=== PATIENT | male | born 1975 | race Caucasian/White ===

== ENCOUNTER 2016-10-22 00:27 | Emergency (ER) ==
[2016-10-22] MEDS ORDERED: SODIUM CHLORIDE 1,000 ML IV STA (00:30)
[2016-10-22 00:48] LABS: BASOPHILS # (AUTO) 0.1 K/uL (0-0.2); BASOPHILS % (AUTO) 0.3 % (0.0-3.0); EOSINOPHILS % (AUTO) 0.3 % (0.0-7.0); HEMATOCRIT 43.8 % (42.0-52.0); HEMOGLOBIN 15.7 g/dl (14.0-18.0); IMMATURE GRANULOCYTE % (AUTO) 0.3 % (0.0-5.0); LYMPHOCYTES # (AUTO) 4.7 K/uL (0.60-3.4); LYMPHOCYTES % (AUTO) 33.2 (10.0-50.0); MEAN CORPUSCULAR HEMOGLOBIN 32.6 pg (27.0-31.0); MEAN CORPUSCULAR HGB CONC 35.8 (31.8-35.4); MEAN CORPUSCULAR VOLUME 91.1 fl (80.0-94.0); MONOCYTES # (AUTO) 0.9 K/uL (0.4-2.0); MONOCYTES % (AUTO) 6.3 (0-10); NEUTROPHILS # (AUTO) 8.5 K/ul (2.0-6.9); NEUTROPHILS % (AUTO) 59.6; PLATELET COUNT 276 10^3/uL (140-440); RED BLOOD COUNT 4.81 10^6/ul (4.70-6.10); WHITE BLOOD COUNT 14.29 K/ul (4.2-10.2)
[2016-10-22 00:59] VITALS: BP 119/64; TEMP 98; BMI 22.1
[2016-10-22 00:59] LABS: ABG PH 7.358 (7.35-7.45)
[2016-10-22 01:00] LABS: ABG BASE EXCESS -7 (-2.0-2.0); ABG HCO3 18.5 (22.0-26.0); ABG TCO2 20 (22.0-28.0)
[2016-10-22] MEDS ORDERED: ATIVAN ONE (01:15)
[2016-10-22 01:18] LABS: ACETAMINOPHEN < 3 ug/ml (10-30); SALICYLATE < 5.0 mg/dL (2.8-20.0)
[2016-10-22 01:28] LABS: ALBUMIN 4.2 g/dL (3.4-5.0); ALBUMIN/GLOBULIN RATIO 1.08; ALKALINE PHOSPHATASE 86 U/L (50-136); ANION GAP 18.8; BILIRUBIN,TOTAL 0.29 mg/dL (0.00-1.20); CALCIUM 9.4 mg/dL (8.2-10.2); CARBON DIOXIDE 18 mmol/L (21-32); CHLORIDE 111 mmol/L (98-107); GLUCOSE 94 mg/dL (70-100); POTASSIUM 3.8 mmol/L (3.5-5.1); SODIUM 144 mmol/L (136-145); TOTAL PROTEIN 8.1 g/dL (6.4-8.2)
[2016-10-22 01:29] LABS: ALANINE AMINOTRANSFERASE 19 U/L (12-78); ASPARTATE AMINO TRANSFERASE 26 U/L (15-37); BLOOD UREA NITROGEN 14 mg/dL (7-18); BUN/CREATININE RATIO 13.46; CREATINE KINASE 408 U/L; CREATINE KINASE MB 1.9 ng/ml (0.0-3.6); CREATININE 1.04 mg/dL (0.60-1.10)
[2016-10-22 01:48] LABS: BILIRUBIN,URINE Negative (NEGATIVE); KETONES,URINE Negative (NEGATIVE); LEUKOCYTE ESTERASE ,URINE Negative (NEGATIVE); NITRITE,URINE Negative (NEGATIVE); PH,URINE 5.5 (5-9); PROTEIN,URINE Negative (NEGATIVE); URINE, BLOOD 1+ (NEGATIVE)
[2016-10-22 01:58] LABS: ADD URINE MICROSCOPIC YES
[2016-10-22 01:59] LABS: BACTERIA,URINE TRACE (NOT PRESENT); COCAIN SCREEN,URINE NEGATIVE (NEGATIVE)
[2016-10-22] MEDS ORDERED: URO-JET MUCOUSMEMB STA (02:12)
--- NOTE | 2016-10-22 02:56 | CT ---
EXAM: CT head without contrast. HISTORY: Mental status change. PROCEDURE: Contiguous axial CT images of the head without contrast with coronal and sagittal reform ats. FINDINGS: The ventricles and basal cisterns are normal in size and configuration. No evidence of ma ss or midline shift. No intracranial hemorrhage or evidence of large vessel infarct. No extra-axia l fluid collection. The paranasal sinuses and mastoid air cells are well-aerated. Impression: Negative CT of the head.
[2016-10-22] MEDS ORDERED: ATIVAN IVP PRN (03:08)
--- NOTE | 2016-10-22 06:29 | ED.PDOC ---
General ED Provider: Dr. DEBBIE MONTE-ER Chief Complaint: Alcohol Intoxication Stated Complaint: brought in by medics for intoxication, had open containers in vehicle admitted to drinking Time Seen by Physician: 00:50 Mode of Arrival: Ambulance Information Source: EMT Exam Limitations: Intoxication Nursing and Triage Documentation Reviewed and Agree: Yes Neurological Complaint Exam - Altered Mental Status Complaint/Exam Current Mental Status: Confusion Last Known Well: uknown Onset: Sudden Symptoms Are: Still present Timing: Constant Episodes Lasting: Hours Initial Severity: Mild Current Severity: Moderate Eye Deviation Present: No Character: Reports: Confusion, Agitation, Lethargy. Denies: Responsiveness Aggravating: Reports: Unknown Alleviating: Reports: None Associated Signs and Symptoms: Denies: Dizziness, Weakness, Headache, Fever, Illness, Nuchal rigidity, Seizure, Nausea, Vomiting, Recently depressed, Trauma Cardiac Risk Factors: Reports: None CVA Risk Factors: Reports: None Related Surgical History: Reports: None Carotid Bruit Present: No Nystagmus Present: No Gag Reflex Present: Yes Meningeal Signs Positive: No Focal Weakness: Present: None Focal Sensory Loss: Present: None Gait: Unsteady Romberg Test Positive: No Heel to Toe Normal: No Signs of Injury: Present: Normal findings Differential Diagnoses: Intoxication Review of Systems - Review Of Systems Constitutional: Reports: No symptoms Eyes: Reports: No symptoms Ears, Nose, Mouth, Throat: Reports: No symptoms Respiratory: Reports: No symptoms Cardiac: Reports: No symptoms GI: Reports: No symptoms : Reports: No symptoms Musculoskeletal: Reports: No symptoms Skin: Reports: No symptoms Neurological: Reports: Cognitive dysfunction Endocrine: Reports: No symptoms Hematologic/Lymphatic: Reports: No symptoms All Other Systems: Reviewed and Negative Past Medical History - Past Medical History Endocrine: Reports: Unknown Cardiovascular: Reports: Unknown Respiratory: Reports: Unknown Hematological: Reports: Unknown Gastrointestinal: Reports: Unknown Genitourinary: Reports: Unknown Neuro/Psych: Reports: Unknown Musculoskeletal: Reports: Unknown Cancer: Reports: Unknown - Surgical History General Surgical History: Reports: Unknown - Family History Family History: Reports: Unknown - Social History Smoking Status: Unknown if ever smoked Hx Substance Use: (marijuana was found per police) Alcohol Screening: Heavy - Immunizations Tetanus Shot up to Date: (unknown) Physical Exam - Physical Exam Appearance: Well-appearing, No pain distress, Well-nourished Eyes: CASTILLO, EOMI, Conjunctiva clear ENT: Ears normal, Nose normal, Oropharynx normal Neck: Supple Respiratory: Airway patent, Breath sounds clear, Breath sounds equal, Respirations nonlabored Cardiovascular: RRR, Pulses normal, No rub, No murmur GI/: Soft, Nontender, No masses, Bowel sounds normal, No Organomegaly Musculoskeletal: Normal strength, ROM intact, No edema, No calf tenderness Skin: Warm, Dry, Normal color Neurological: Disoriented Psychiatric: Affect appropriate, Mood appropriate Interpretation - Radiology Interpretation Radiology Interpretation By: Radiologist Radiology Results: Negative Exam Interpreted: CT Scan - EKG Interpretation Time of EKG #1: 06:30 Rate: Normal Rhythm: Sinus Ectopy: None [place]: NL ST Segment: Normal Critical Care Note - Critical Care Note Total Time (mins): 0 Course - Course Hematology/Chemistry: 10/22/16 00:37 10/22/16 00:37 Orders, Labs, Meds: Lab Review 10/22/16 10/22/16 10/22/16 00:28 00:37 01:40 WBC 14.29 H RBC 4.81 Hgb 15.7 Hct 43.8 MCV 91.1 MCH 32.6 H MCHC 35.8 H RDW Coeff of Lui 14.1 Plt Count 276 Immature Gran % (Auto) 0.3 Neut % (Auto) 59.6 Lymph % (Auto) 33.2 Dunn % (Auto) 6.3 Eos % (Auto) 0.3 Baso % (Auto) 0.3 Immature Gran # (Auto) 0.1 Neut # 8.5 H Lymph # 4.7 H Dunn # 0.9 Eos # 0.0 Baso # 0.1 Puncture Site Rb O2 Saturation 98.0 ABG pH 7.358 ABG pCO2 33.0 L ABG pO2 105.0 H ABG HCO3 18.5 L ABG Total CO2 20 L ABG Base Excess -7 L Samy Test + O2 Delivery Device Nc Oxygen Liter Flow 4.00 FiO2 % 36.0 Sodium 144 Potassium 3.8 Chloride 111 H Carbon Dioxide 18 L Anion Gap 18.8 BUN 14 Creatinine 1.04 Estimated GFR (MDRD) 78.00 BUN/Creatinine Ratio 13.46 Glucose 94 Calcium 9.4 Total Bilirubin 0.29 AST 26 ALT 19 Alkaline Phosphatase 86 Total Creatine Kinase 408 CK-MB (CK-2) 1.9 CK-MB (CK-2) % 0.37835 Troponin I < 0.0100 Total Protein 8.1 Albumin 4.2 Globulin 3.9 Albumin/Globulin Ratio 1.08 Urine Color Yellow Urine Clarity Clear Urine pH 5.5 Ur Specific [place] <=1.005 Urine Protein Negative Urine Glucose (UA) Negative Urine Ketones Negative Urine Blood 1+ Urine Nitrite Negative Urine Bilirubin Negative Urine Urobilinogen 0.2 Ur Leukocyte Esterase Negative Urine Microscopic RBC 0-2 Ur Squamous Epith Cells Not present Ur Renal Epithelial Cell 2-5 Urine Bacteria Trace Salicylate Level mg/dL < 5.0 Urine Opiates Screen Negative Ur Oxycodone Screen Negative Urine Methadone Screen Negative Ur Propoxyphene Screen Negative Acetaminophen < 3 L Ur Barbiturates Screen Negative U Tricyclic Antidepress Negative Ur Phencyclidine Scrn Negative Ur Amphetamine Screen Negative U Methamphetamines Scrn Negative U Benzodiazepines Scrn Positive Urine Cocaine Screen Negative U Cannabinoids Screen Positive Plasma/Serum Alcohol 378.2 H 10/22/16 06:17 WBC RBC Hgb Hct MCV MCH MCHC RDW Coeff of Lui Plt Count Immature Gran % (Auto) Neut % (Auto) Lymph % (Auto) Dunn % (Auto) Eos % (Auto) Baso % (Auto) Immature Gran # (Auto) Neut # Lymph # Dunn # Eos # Baso # Puncture Site O2 Saturation ABG pH ABG pCO2 ABG pO2 ABG HCO3 ABG Total CO2 ABG Base Excess Samy Test O2 Delivery Device Oxygen Liter Flow FiO2 % Sodium Potassium Chloride Carbon Dioxide Anion Gap BUN Creatinine Estimated GFR (MDRD) BUN/Creatinine Ratio Glucose Calcium Total Bilirubin AST ALT Alkaline Phosphatase Total Creatine Kinase CK-MB (CK-2) CK-MB (CK-2) % Troponin I Total Protein Albumin Globulin Albumin/Globulin Ratio Urine Color Urine Clarity Urine pH Ur Specific [place] Urine Protein Urine Glucose (UA) Urine Ketones Urine Blood Urine Nitrite Urine Bilirubin Urine Urobilinogen Ur Leukocyte Esterase Urine Microscopic RBC Ur Squamous Epith Cells Ur Renal Epithelial Cell Urine Bacteria Salicylate Level mg/dL Urine Opiates Screen Ur Oxycodone Screen Urine Methadone Screen Ur Propoxyphene Screen Acetaminophen Ur Barbiturates Screen U Tricyclic Antidepress Ur Phencyclidine Scrn Ur Amphetamine Screen U Methamphetamines Scrn U Benzodiazepines Scrn Urine Cocaine Screen U Cannabinoids Screen Plasma/Serum Alcohol 282.2 H Orders Category Date Time Status ABG DRAW REQUEST Stat CARDIO 10/22/16 00:28 Completed EKG-(ED ONLY) Stat CARDIO 10/22/16 00:28 Completed Delivery Assistant [ED GREENBELT APPLIED] .ONCE EMERGENCY 10/22/16 00:30 Active Catheter [ED CATHETER INSERTION AND CARE] .ONCE EMERGENCY 10/22/16 02:12 Active ED IV/MEDIPORT/POWERPORT .ONCE EMERGENCY 10/22/16 00:30 Active ABG Stat LAB 10/22/16 00:28 Completed BLOOD ALCOHOL Stat LAB 10/22/16 06:17 Completed CBC W/ AUTO DIFF Stat LAB 10/22/16 00:37 Completed COMPREHENSIVE METABOLIC PANEL Stat LAB 10/22/16 00:37 Completed CREATINE KINASE Stat LAB 10/22/16 00:37 Completed ETOH LEVEL [BLOOD ALCOHOL] Stat LAB 10/22/16 00:37 Completed SALICYLATE Stat LAB 10/22/16 00:37 Completed TROPONIN I Stat LAB 10/22/16 00:37 Completed TYLENOL LEVEL [ACETAMINOPHEN] Stat LAB 10/22/16 00:37 Completed URINALYSIS C & S IF INDICATED Stat LAB 10/22/16 01:40 Completed URINE DRUG SCREEN (RAPID FOR ED) [DRUG SCREEN, URINE, LAB 10/22/16 01:40 Completed RAPID] Stat 0.9 % Sodium Chloride [Saline Flush] MEDS 10/22/16 00:30 Active 1 syr IVF PRN PRN Lidocaine HCl [Uro-Jet] MEDS 10/22/16 02:12 Discontinued 10 ml [id number] ONCE STA Lorazepam Inj [Ativan] MEDS 10/22/16 01:15 Discontinued 2 mg .ROUTE .STK-MED ONE Lorazepam Inj [Ativan] MEDS 10/22/16 03:08 Active 2 mg IVP ONCE PRN Sodium Chloride 0.9% [Sodium Chloride] 1,000 ml MEDS 10/22/16 00:30 Active IV 100 mls/hr CT HEAD W/O CONTRAST Stat RADS 10/22/16 00:29 Completed Medications Generic Name Dose Route Start Last Admin Trade Name Freq PRN Reason Stop Dose Admin Sodium Chloride 1,000 mls @ 100 mls/hr 10/22/16 00:30 10/22/16 00:57 Sodium Chloride IV 10/22/16 10:29 100 mls/hr .Q10H STA Administration Lorazepam 2 mg 10/22/16 03:08 Ativan IVP ONCE PRN Agitation Sodium Chloride 1 syr 10/22/16 00:30 10/22/16 00:57 Saline Flush IVF 1 syr PRN PRN Administration To flush IV Discontinued Medications Generic Name Dose Route Start Last Admin Trade Name Freq PRN Reason Stop Dose Admin Lidocaine HCl 10 ml 10/22/16 02:12 10/22/16 02:14 Uro-Jet [id number] 10/22/16 02:13 Not Given ONCE STA Vital Signs: Temp Pulse Resp BP Pulse Ox 10/22/16 00:46 98 F 95 H 20 119/64 99 Departure - Departure Time of Disposition: 06:36 Disposition: HOME SELF-CARE Discharge Problem: Alcohol intoxication Instructions: Alcohol Intoxication (ED) Condition: Fair Pt referred to PMD for follow-up: Yes Additional Instructions: f/u with pcp Home Medications: Ambulatory Orders 1 [Unobtainable] 10/22/16 Disposition Discussed With: Patient
== END 2016-10-22 09:20 | disposition home or self-care (01) ==
LOC: ED 00:27
DX: F10.129 Alcohol abuse with intoxication, unspecified (principal); R41.0 Disorientation, unspecified
CPT/HCPCS: 36415; 80053; 80306; 80307; 81001; 82550; 82553; 82803; 84484; 85025; 93005; 93010; 96361; 96374; 99285